=== PATIENT | male | born 1990 | race Caucasian/White ===

== ENCOUNTER 2018-08-30 06:51 | Emergency (ER) | payer MEDICAID, SELFPAY ==
[2018-08-30 06:57] VITALS: BP 144/82; PULSE 82; RESP 15; TEMP 36.5; O2SAT 100
--- NOTE | 2018-08-30 07:17 | DI.RAD_ITS ---
SYMPTOM/DIAGNOSIS: PERSISTENT PAIN, SWELLING LEFT RING FINGER: Three views. There is a nondisplaced fracture involving the head of the proximal phalanx of the left ring finger. The fracture extends into the proximal interphalangeal joint. There is soft tissue swelling of the ring finger. No radiopaque foreign bodies are seen. IMPRESSION: Nondisplaced intra-articular fracture involving the head of the proximal phalanx of the left ring finger.
--- NOTE | 2018-08-30 07:19 | W.ED.GENAD ---
Discharge Plan Disposition Patient Disposition: HOME Condition: Good Discharge Details Chief Complaint: Orthopedic Clinical Impression: Closed fracture of phalanx of left ring finger Primary Care Provider: Bradley Duncan ED Provider: Anson Mendoza [place] Meds and New Rx's Prescriptions: Continue methadone 10 mg/mL Concentrate 80 mg PO DAILY RF: 0 Discharge Instructions Instructions: Finger Fracture (ED) Additional Instructions: Use farhad tape instead of splinter so that you may move your fingers and get the stiffness out. Tylenol or Motrin as needed for pain. Follow-up with orthopedics in 2 weeks. Return to ED if any problems. Referrals: [facility] [Provider Group] Medical Decision Making Will obtain x-ray of ring finger, but maybe related to stiffness and scarring due to being in splint for a month. X-ray positive for fracture of the left ring finger involving the proximal phalanx into the joint space of the PIP. It is not displaced or angulated. Reviewed with Dr. Lowry. Recommends farhad taping so that he may begin moving his fingers as most of the stiffness and decreased range of motion is due to being in a splint. Follow-up with orthopedics in 2 weeks. Patient briefly seen in the ED by Dr. Lowry. Patient discharged home. HPI General Mode of arrival: ambulatory. Date/Time Provider Initiated Documentation: 08/30/18 07:13. Limitations to Documentation: no limitations. Information obtained by: patient. HPI Narrative: Patient present to ED for evaluation of persistent left ring finger pain after injury about a month ago. He has kept it splinted but it seems to be getting worse instead of better. He actually has less ROM now then when the injury occurred. He caught his finger in the rungs of a ladder. He has not been able to see anyone before now. Related Data Home Medications Medication Instructions Recorded Confirmed methadone 80 mg PO DAILY 08/30/18 08/30/18 Allergies Allergy/AdvReac Type Severity Reaction Status Date / Time No Known Allergies Allergy Unverified 08/30/18 07:02 General Stated Complaint: Orthopedic OSWALD: 4 Review of Systems Constitutional Denies weakness Musculoskeletal Denies myalgias, Reports arthralgias, Reports joint swelling and Denies numbness Integumentary/Breasts Denies erythema and Denies wounds Neurologic Denies numbness and Denies weakness [facility] Medical History History of drug abuse (Inactive) Social History Smoking/Tobacco Use Status: Current every day Surgical History S/P arthroscopic knee surgery (Inactive) Exam Const General: cooperative, comfortable and no acute distress Orientation: alert and oriented x3 Neuro General: alert, oriented x3, no focal motor deficits and CN's II-XI intact bilaterally Sensory Exam: no sensory deficits noted Extrem Left upper extremity: hand Details: neuromotor exam abnormal, neurosensory exam normal and abnormal ROM of finger Details: pain with active ROM Location: of the 4th digit, pain with passive ROM Location: of the 4th digit and unable to flex Location: of the 4th digit Course Vital Signs Temperature 97.7 F 08/30/18 06:57 Pulse 82 08/30/18 06:57 Respiratory Rate 15 08/30/18 06:57 Blood Pressure 144/82 H 08/30/18 06:57 Pulse Oximetry 100 08/30/18 06:57 Temperature 97.7 F 08/30/18 06:57 Temperature Source Temporal Artery Scan 08/30/18 06:57 Pulse 82 08/30/18 06:57 Respiratory Rate 15 08/30/18 06:57 Respiratory Effort Non-Labored 08/30/18 07:01 Blood Pressure 144/82 H 08/30/18 06:57 Blood Pressure Position Sitting 08/30/18 06:57 Pulse Oximetry 100 08/30/18 06:57 Oxygen Delivery Method Room Air 08/30/18 06:57 Oxygen Flow Rate 0 08/30/18 06:57
--- NOTE | 2018-08-30 07:28 | ED.GENADUL_ITS ---
Discharge Plan Disposition Patient Disposition: HOME Condition: Good Discharge Details Chief Complaint: Orthopedic Clinical Impression: Closed fracture of phalanx of left ring finger Primary Care Provider: Bradley Duncan ED Provider: Anson Mendoza [place] Meds and New Rx's Prescriptions: Continue methadone 10 mg/mL Concentrate 80 mg PO DAILY RF: 0 Discharge Instructions Instructions: Finger Fracture (ED) Additional Instructions: Use farhad tape instead of splinter so that you may move your fingers and get the stiffness out. Tylenol or Motrin as needed for pain. Follow-up with orthopedics in 2 weeks. Return to ED if any problems. Referrals: [facility] [Provider Group] Medical Decision Making Will obtain x-ray of ring finger, but maybe related to stiffness and scarring due to being in splint for a month. X-ray positive for fracture of the left ring finger involving the proximal phalanx into the joint space of the PIP. It is not displaced or angulated. Reviewed with Dr. Lowry. Recommends farhad taping so that he may begin moving his fingers as most of the stiffness and decreased range of motion is due to being in a splint. Follow-up with orthopedics in 2 weeks. Patient briefly seen in the ED by Dr. Lowry. Patient discharged home. HPI General Mode of arrival: ambulatory . Date/Time Provider Initiated Documentation: 08/30/18 07:13 . Limitations to Documentation: no limitations . Information obtained by: patient . HPI Narrative: Patient present to ED for evaluation of persistent left ring finger pain after injury about a month ago. He has kept it splinted but it seems to be getting worse instead of better. He actually has less ROM now then when the injury occurred. He caught his finger in the rungs of a ladder. He has not been able to see anyone before now. Related Data Home Medications Medication Instructions Recorded Confirmed methadone 80 mg PO DAILY 08/30/18 08/30/18 Allergies Allergy/AdvReac Type Severity Reaction Status Date / Time No Known Allergies Allergy Unverified 08/30/18 07:02 General Stated Complaint: Orthopedic OSWALD: 4 Review of Systems Constitutional Denies weakness Musculoskeletal Denies myalgias, Reports arthralgias, Reports joint swelling and Denies numbness Integumentary/Breasts Denies erythema and Denies wounds Neurologic Denies numbness and Denies weakness [facility] Medical History History of drug abuse (Inactive) Social History Smoking/Tobacco Use Status: Current every day Surgical History S/P arthroscopic knee surgery (Inactive) Exam Const General: cooperative, comfortable and no acute distress Orientation: alert and oriented x3 Neuro General: alert, oriented x3, no focal motor deficits and CN's II-XI intact bilaterally Sensory Exam: no sensory deficits noted Extrem Left upper extremity: hand Details: neuromotor exam abnormal, neurosensory exam normal and abnormal ROM of finger Details: pain with active ROM Location: of the 4th digit, pain with passive ROM Location: of the 4th digit and unable to flex Location: of the 4th digit Course Vital Signs Temperature 97.7 F 08/30/18 06:57 Pulse 82 08/30/18 06:57 Respiratory Rate 15 08/30/18 06:57 Blood Pressure 144/82 H 08/30/18 06:57 Pulse Oximetry 100 08/30/18 06:57 Temperature 97.7 F 08/30/18 06:57 Temperature Source Temporal Artery Scan 08/30/18 06:57 Pulse 82 08/30/18 06:57 Respiratory Rate 15 08/30/18 06:57 Respiratory Effort Non-Labored 08/30/18 07:01 Blood Pressure 144/82 H 08/30/18 06:57 Blood Pressure Position Sitting 08/30/18 06:57 Pulse Oximetry 100 08/30/18 06:57 Oxygen Delivery Method Room Air 08/30/18 06:57 Oxygen Flow Rate 0 08/30/18 06:57
--- NOTE | 2018-08-30 08:27 | DI.VRAD_ITS ---
EXAM: XR Left Finger(s), 2 or More Views EXAM DATE/TIME: 08/30/2018 7:18 AM CLINICAL HISTORY: 28 years old, male; Signs and symptoms; Other: Persistent pain/swelling TECHNIQUE: XR Left finger minimum 2 views. COMPARISON: No relevant prior studies available. FINDINGS: Bones/joints: There is an acute, nondisplaced, obliquely oriented fracture through the fourth proximal phalanx distally with intra-articular involvement of the proximal interphalangeal joint. No fracture is identified elsewhere. The joint spaces are normally aligned. Soft tissues: There is mild associated soft tissue swelling. IMPRESSION: Acute fracture of the fourth proximal phalanx. Dictated and Authenticated by: Luis Enrique Shahid MD. Ordering:SAEID FLETCHER MD
== END 2018-08-30 08:30 | disposition home or self-care (01) ==
PROVIDERS: Emergency Provider Emergency Medicine; PCP General Practice
DX: S62.605A Fracture of unspecified phalanx of left ring finger, initial encounter for closed fracture (principal); W23.0XXA Caught, crushed, jammed, or pinched between moving objects, initial encounter
CPT/HCPCS: 26720; 73140

== ENCOUNTER 2020-05-23 18:09 | Emergency (ER) | payer MEDICAID, SELFPAY ==
[2020-05-23 18:13] VITALS: BP 116/76; PULSE 70; RESP 18; TEMP 36.7; O2SAT 99
--- NOTE | 2020-05-23 18:19 | W.ED.GENAD ---
Discharge Plan Disposition Patient Disposition: HOME Condition: Stable Discharge Details Chief Complaint: Headache Clinical Impression: Migraine Primary Care Provider: Bradley Duncan ED Provider: Iggy Johns Home Meds and New Rx's Prescriptions: Continued methadone 10 mg/mL Concentrate 80 mg PO DAILY RF: 0 No Action ibuprofen 200 mg Tablet 600 mg PO PRN PRNRF: 0 Discharge Instructions Instructions: Migraine Headache (ED) Additional Instructions: Home to rest today. Small, frequent sips of fluids to maintain hydration. Return to the emergency department for any acute concerns. Discharge Data Discharge Date/Time-TO BE ENTERED AT DEPARTURE: 05/23/20 20:20 Medical Decision Making 30-year-old male presents from home with hours of migraine type global headache which he states is similar to previous that he has had in the past. He has not been ill, no injury. No neurologic deficits on exam. Vital signs are unremarkable with blood pressure 116/76, pulse 70 and the patient is afebrile. Differential diagnosis includes tension headache, migraine headache. Do not find evidence of trauma nor recent illness. IV access was established, patient given fluid bolus, antiemetic, benadryl, Toradol, and Ativan for anxiety. Following medication administration, the patient was able to rest quietly, slept, awoke and felt better, was ambulatory and tolerating p.o., requesting discharge to home. Consistent with migraine headache. Patient discharged. HPI General Mode of arrival: ambulatory. Date/Time Provider Initiated Documentation: 05/23/20 18:12. Limitations to Documentation: no limitations. Information obtained by: patient. History of Present Illness 30 year old M presents to the emergency department with the chief complaint of Headache, described as moderate, severe and similar to prior episodes, Quality is described as dull and constant, and is localized to the head. Patient reports no radiation. Patient started experiencing this hour(s) and it has been constant. No relieving factors improve symptom(s), No exacerbating factors reported . Patient notes other (Nausea, photophobia). Patient did receive the following treatments prior to arrival, none Related Data Home Medications Medication Instructions Recorded Confirmed methadone 80 mg PO DAILY 08/30/18 05/23/20 ibuprofen 600 mg PO PRN PRN 05/23/20 05/23/20 Allergies Allergy/AdvReac Type Severity Reaction Status Date / Time No Known Allergies Allergy Unverified 05/23/20 18:16 General Stated Complaint: Headache OSWALD: 3 Review of Systems Narrative: No fever, fall, injury. No recent illness. 6 systems reviewed and otherwise negative [facility] Medical History History of drug abuse (Inactive) Social History Smoking/Tobacco Use Status: Current every day Tobacco Type: cigarettes Alcohol Intake: never Drug use: Current Sobriety Do you feel safe in your relationship?: Yes Exam Narrative Exam Narrative: GEN: awake, alert, oriented 3. Pleasant, interactive, lying in a darkened room HEAD: Normocephalic, atraumatic ENT: Mucous membranes moist, External ear exam unremarkable EYES: PERRL, EOMI NECK: Full ROM, no CARRIE, no menigismus CHEST/RESP: Nontender, clear to auscultation bilateral, no wheeze/rhonchi/rales CARDIOVASCULAR: RRR, no murmur, rub sanket. 2+ Rad pulse bilateral ABDOMEN: Soft, nontender, no mass. +Bowel sounds EXT: Full ROM, no edema, no rash Neuro: Grossly normal neurologic exam, conversant, interactive. Psych: Speech fluent, thoughts congruent, affect anxious Course Vital Signs Vital signs: Vital Signs Temperature 36.7 C 05/23/20 18:13 Pulse 70 05/23/20 18:13 Respiratory Rate 18 05/23/20 18:13 Blood Pressure 116/76 05/23/20 18:13 Pulse Oximetry 99 05/23/20 18:13 Temperature 36.7 C 05/23/20 18:13 Temperature Source Temporal Artery Scan 05/23/20 18:13 Pulse 70 05/23/20 18:13 Respiratory Rate 18 05/23/20 18:13 Blood Pressure 116/76 05/23/20 18:13 Pulse Oximetry 99 05/23/20 18:13 Oxygen Delivery Method Room Air 05/23/20 18:13 Oxygen Flow Rate 0 05/23/20 18:13 Pain Level 10 05/23/20 18:13
[2020-05-23] MEDS: Normal Saline 1,000 ML 1000 ML IV (18:25)
[2020-05-23] MEDS: Ketorolac 30 MG/ML VIAL IVP (18:30)
[2020-05-23] MEDS: Metoclopramide 10 MG/2 ML VIAL IVP (18:34)
[2020-05-23] MEDS: diphenhydrAMINE 50 MG/ML VIAL 25 MG IVP ×2 (18:35→18:47)
[2020-05-23] MEDS: LORazepam 2 MG/ML VIAL 1 MG IVP (18:47)
[2020-05-23 18:50] VITALS: PULSE 60; O2SAT 97
[2020-05-23 18:51] VITALS: O2SAT 98
[2020-05-23 19:00] VITALS: O2SAT 95
[2020-05-23 19:10] VITALS: O2SAT 94
[2020-05-23 19:49] VITALS: BP 147/95; PULSE 69; RESP 16; O2SAT 100
== END 2020-05-23 20:20 | disposition home or self-care (01) ==
PROVIDERS: Emergency Provider Emergency Medicine; PCP General Practice
DX: G43.809 Other migraine, not intractable, without status migrainosus (principal); R11.0 Nausea
CPT/HCPCS: 96361; 96374; 96375; 99284; 99283; J1200; J1885; J2060; J2765

== ENCOUNTER 2025-02-06 08:27 | Outpatient (CLI) | payer MEDICAID, SELFPAY ==
--- NOTE | 2025-02-06 08:30 | RT.EKG_ITS ---
APPROVED REPORT Exam: Resting ECG Reason for Exam: high risk medication use Patient Location: O HR:73 bpm ECG Measurements Heart Rate 73 AXIS NJ 157 P 44 QRSd 93 QRS 30 QT 460 T 27 QTc 507 Conclusion Sinus rhythm...normal P axis, V-rate 50- 99 Probable left atrial enlargement...P >50mS, <-0.10mV V1
== END 2025-02-06 08:28 | disposition home or self-care (01) ==
PROVIDERS: PCP General Practice; Visit Provider Family Medicine
DX: Z79.899 Other long term (current) drug therapy (principal); I51.7 Cardiomegaly
CPT/HCPCS: 93005; 93010

== ENCOUNTER 2025-03-06 08:27 | Outpatient (CLI) | payer MEDICAID, SELFPAY ==
--- NOTE | 2025-03-06 08:15 | RT.EKG_ITS ---
APPROVED REPORT Exam: Resting ECG Reason for Exam: high risk medication use Patient Location: O HR:81 bpm ECG Measurements Heart Rate 81 AXIS SD 154 P 59 QRSd 86 QRS 43 QT 447 T 20 QTc 519 Conclusion Sinus rhythm...normal P axis, V-rate 50- 99 Probable left atrial enlargement...P >50mS, <-0.10mV V1 Borderline T abnormalities, anterior leads...T flat or neg, V2-V4 Prolonged QT interval...QTc >488mS
== END 2025-03-06 08:28 | disposition home or self-care (01) ==
PROVIDERS: PCP General Practice; Visit Provider Family Medicine
DX: Z79.899 Other long term (current) drug therapy (principal); I51.7 Cardiomegaly
CPT/HCPCS: 93005; 93010

== ENCOUNTER 2025-05-21 08:26 | Outpatient (CLI) | payer MEDICAID, SELFPAY ==
--- NOTE | 2025-05-21 08:30 | RT.EKG_ITS ---
APPROVED REPORT Exam: Resting ECG Reason for Exam: High Risk Medication Use Patient Location: O HR:79 bpm ECG Measurements Heart Rate 79 AXIS DE 157 P 58 QRSd 92 QRS 29 QT 489 T -29 QTc 561 Conclusion Sinus rhythm...normal P axis, V-rate 50- 99 Prolonged QT interval...QTc >488mS
== END 2025-05-21 08:27 | disposition home or self-care (01) ==
PROVIDERS: PCP General Practice; Visit Provider Family Medicine
DX: Z79.899 Other long term (current) drug therapy (principal); I45.81 Long QT syndrome
CPT/HCPCS: 93005; 93010

== ENCOUNTER 2025-07-29 08:40 | Outpatient (CLI) | payer MEDICAID, SELFPAY ==
--- NOTE | 2025-07-29 08:30 | RT.EKG_ITS ---
APPROVED REPORT Exam: Resting ECG Reason for Exam: HIGH RISK MEDICATION USE Patient Location: O HR:69 bpm ECG Measurements Heart Rate 69 AXIS ND 157 P 52 QRSd 93 QRS 23 QT 404 T 5 QTc 433 Conclusion Sinus rhythm...normal P axis, V-rate 50- 99 Probable left atrial enlargement...P >50mS, <-0.10mV V1 Borderline T wave abnormalities...T/QRS ratio < 1/20 or flat T
== END 2025-07-29 08:41 | disposition home or self-care (01) ==
PROVIDERS: PCP General Practice; Visit Provider Family Medicine
DX: Z79.899 Other long term (current) drug therapy (principal)
CPT/HCPCS: 93005; 93010

== ENCOUNTER 2025-10-01 08:45 | Outpatient (CLI) | payer MEDICAID, SELFPAY ==
--- NOTE | 2025-10-01 08:45 | RT.EKG_ITS ---
APPROVED REPORT Exam: Resting ECG Reason for Exam: High Risk medication use Patient Location: O HR:70 bpm ECG Measurements Heart Rate 70 AXIS WA 158 P 51 QRSd 95 QRS 43 QT 429 T 12 QTc 463 Conclusion Sinus rhythm...normal P axis, V-rate 50- 99 Probable left atrial enlargement...P >50mS, <-0.10mV V1 Borderline T wave abnormalities...T/QRS ratio < 1/20 or flat T
== END 2025-10-01 08:46 | disposition home or self-care (01) ==
PROVIDERS: PCP General Practice; Visit Provider Family Medicine
DX: Z79.899 Other long term (current) drug therapy (principal); F11.20 Opioid dependence, uncomplicated
CPT/HCPCS: 93005; 93010